=== PATIENT | male | born 1940 | race Caucasian/White ===

== ENCOUNTER 2020-05-26 08:40 | Inpatient (IN) ==
--- NOTE | 2020-05-24 17:27 | XRay Report ---
CLINICAL INFORMATION: Pre-Op COMPARISON: 03/07/2012 FINDINGS: Small hiatal hernia is appreciated. Cardiomediastinal silhouette and pulmonary vessels are otherwise normal. Lungs are clear. No effusions. Mild old compression fractures mid thoracic spine stable IMPRESSION: No acute disease. Small hiatal hernia - new from prior exam Interpreted and Authenticated by: Remigio Machado 05/24/20
[2020-05-24 18:56] LABS: INR 0.9 (0.9-1.1); Partial Thromboplastin Time 29.7 sec (20.0-37.0); Prothrombin Time 12.8 sec (11.9-14.5)
[2020-05-24 19:40] LABS: Basophils # (Auto) 0.07 K/mcL (0.00-0.20); Eosinophils # (Auto) 0.28 K/mcL (0.00-0.70); Hemoglobin 15.9 g/dL (13.5-16.5); Lymphocytes # (Auto) 1.16 K/mcL (1.50-4.80); Lymphocytes % (Auto) 16.6 % (15.0-49.0); Mean Corpuscular HGB Conc 32.4 g/dL (31.0-36.0); Mean Platelet Volume 11.4 fL (7.4-10.4); Monocytes % (Auto) 5.7 % (1.0-12.0); Neutrophils % (Auto) 72.7 % (38.0-78.0); Platelet Count 178 K/mcL (140-440); RBC 5.27 M/mcL (4.50-5.90)
[2020-05-24 20:27] LABS: ALT/SGPT 18 U/L (<40); AST/SGOT 26 U/L (<40); Albumin 4.8 gm/dL (3.2-5.2); Albumin/Globulin Ratio 2.1 (1.0-2.3); Alkaline Phosphatase 94 U/L (39-117); Bilirubin,Total 0.5 mg/dL (0.1-1.0); Blood Urea Nitrogen 13 mg/dL (8-23); Calcium 9.6 mg/dL (8.6-10.4); Carbon Dioxide 27 mmol/L (22-30); Chloride 99 mmol/L (96-108); Globulin 2.3 gm/dL (2.2-3.7); Glomerular Filtration Rate 72; Glucose 96 mg/dL (70-105)
[2020-05-28] MEDS ORDERED: LEVOFLOXACIN 750 MG/150 ML BAG IV SCH (06:00)
[2020-05-28] MEDS ORDERED: metroNIDAZOLE 500 MG/100 ML BAG IV SCH (06:00)
[2020-05-28] MEDS ORDERED: SCOPOLAMINE 1 PATCH PATCH TOPICAL PRN (07:00)
[2020-05-28] MEDS ORDERED: IPRATROPIUM/ALBUTEROL 3 ML AMPUL.NEB NEB PRN ×2 (07:00→10:22)
[2020-05-28] MEDS ORDERED: SUCCINYLCHOLINE 20 MG/ML ML IV ONE (07:45)
[2020-05-28] MEDS ORDERED: LIDOCAINE HCL/PF 100 MG/5 ML SYRINGE IV ONE (07:45)
[2020-05-28] MEDS ORDERED: ROCURONIUM 10 MG/ML ML IV ONE (07:45)
[2020-05-28] MEDS ORDERED: PROPOFOL 200 MG/20 ML VIAL IV ONE (07:45)
[2020-05-28] MEDS ORDERED: KETAMINE 100 MG/ML ML ONE (07:45)
[2020-05-28] MEDS ORDERED: ePHEDrine 50 MG/ML AMPUL IV ONE (07:45)
[2020-05-28] MEDS ORDERED: PHENYLEPHRINE 10 MG/ML VIAL ONE (07:45)
[2020-05-28] MEDS ORDERED: HYDROmorphone 1 MG/ML SYRINGE ONE (07:45)
[2020-05-28] MEDS ORDERED: GLYCOPYRROLATE 0.2 MG/ML VIAL IV ONE (07:45)
[2020-05-28] MEDS ORDERED: DEXAMETHASONE 10 MG/ML VIAL ONE (07:45)
[2020-05-28] MEDS ORDERED: ROPIVACAINE HCL/PF 20 ML VIAL IJ ONE (07:45)
[2020-05-28] MEDS ORDERED: fentaNYL 100 MCG/2 ML VIAL IV ONE (07:45)
[2020-05-28] MEDS ORDERED: ONDANSETRON 4 MG/2 ML VIAL ONE (07:45)
[2020-05-28] MEDS ORDERED: ONDANSETRON 4 MG/2 ML VIAL IV PRN ×2 (10:05→10:22)
--- NOTE | 2020-05-28 10:05 | Brief Operative Note ---
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
[2020-05-28] MEDS ORDERED: oxyCODONE HCL 5 MG TABLET PO PRN (10:11)
[2020-05-28] MEDS ORDERED: fentaNYL 100 MCG/2 ML VIAL IV PRN (10:22)
[2020-05-28] MEDS ORDERED: METHOCARBAMOL 1,000 MG/10 ML VIAL IV PRN (10:22)
[2020-05-28] MEDS ORDERED: BENZOCAINE/MENTHOL 1 LOZENGE PO PRN (10:22)
[2020-05-28] MEDS ORDERED: NALOXONE HCL 0.4 MG/ML VIAL IV PRN (10:22)
[2020-05-28] MEDS ORDERED: LACTATED RINGERS 250 ML IV PRN (10:22)
[2020-05-28] MEDS ORDERED: ACETAMINOPHEN 1,000 MG/100 ML BAG IV ONE (10:22)
[2020-05-28] MEDS ORDERED: LACTATED RINGERS 1,000 ML IV SCH (10:30)
[2020-05-28] MEDS: 0.9 % SODIUM CHLORIDE 1,000 ML IV SCH ×2 (11:28→19:36)
[2020-05-28] MEDS: METOCLOPRAMIDE 10 MG/2 ML VIAL IV SCH ×3 (12:25→23:21)
[2020-05-28] MEDS: 0.9 % SODIUM CHLORIDE 10 ML SYRINGE IV SCH ×2 (14:52→20:59)
[2020-05-28] MEDS ORDERED: diphenhydrAMINE 25 MG CAPSULE PO PRN (21:00)
[2020-05-28] MEDS: ACETAMINOPHEN 1,000 MG/100 ML BAG IV PRN (22:06)
[2020-05-29] MEDS: 0.9 % SODIUM CHLORIDE 1,000 ML IV SCH ×5 (04:02→21:13)
[2020-05-29] MEDS: ACETAMINOPHEN 1,000 MG/100 ML BAG IV PRN ×3 (04:52→22:07)
[2020-05-29] MEDS: METOCLOPRAMIDE 10 MG/2 ML VIAL IV SCH ×4 (05:50→23:34)
[2020-05-29] MEDS: 0.9 % SODIUM CHLORIDE 10 ML SYRINGE IV SCH ×3 (05:50→20:36)
[2020-05-29 06:17] LABS: Basophils # (Auto) 0.01 K/mcL (0.00-0.20); Basophils % (Auto) 0.1 % (0.0-2.0); Eosinophils # (Auto) 0 K/mcL (0.00-0.70); Eosinophils % (Auto) 0 % (0.0-7.0); Hematocrit 42.2 % (41.0-55.0); Hemoglobin 13.4 g/dL (13.5-16.5); Lymphocytes # (Auto) 0.47 K/mcL (1.50-4.80); Lymphocytes % (Auto) 3.3 % (15.0-49.0); Mean Cell Volume 93.4 fL (80.0-100.0); Mean Corpuscular HGB Conc 31.8 g/dL (31.0-36.0); Mean Platelet Volume 10.7 fL (7.4-10.4); Monocytes # (Auto) 0.85 K/mcL (0.10-0.90); Monocytes % (Auto) 6.1 % (1.0-12.0); Neutrophils % (Auto) 90.5 % (38.0-78.0); Platelet Count 148 K/mcL (140-440); RBC 4.52 M/mcL (4.50-5.90); Red Cell Distribution Width 13.9 % (11.5-14.5)
[2020-05-29 06:43] LABS: ALT/SGPT 14 U/L (<40); AST/SGOT 18 U/L (<40); Albumin 3.4 gm/dL (3.2-5.2); Alkaline Phosphatase 58 U/L (39-117); Bilirubin,Direct 0.2 mg/dL (<0.3); Bilirubin,Total 0.7 mg/dL (0.1-1.0); Blood Urea Nitrogen 12 mg/dL (8-23); Calcium 8.1 mg/dL (8.6-10.4); Carbon Dioxide 24 mmol/L (22-30); Chloride 104 mmol/L (96-108); Globulin 1.7 gm/dL (2.2-3.7); Glomerular Filtration Rate 72; Glucose 132 mg/dL (70-105); Lactate Dehydrogenase 166 U/L (135-225); Phosphorous 2.7 mg/dL (2.5-4.5); Triglycerides 60 mg/dL (<150); Uric Acid 6.5 mg/dL (2.5-8.0)
[2020-05-29] MEDS ORDERED: BENZOCAINE 1 SPRAY BOTTLE TOPICAL PRN (13:34)
--- NOTE | 2020-05-29 13:39 | General Surgery Progress Note ---
SUBJECTIVE Subjective Patient information: Note initiated : 05/29/20 at 1:31 pm Service Date, if different from initiated Date: [] Patient: Luis Manuel Lagos 79 y/o M admitted on 05/28/20 for Right Colectomy. Chief Complaint: [] Principal diagnosis: Cecal cancer Interval history: Patient is doing well. He has mild discomfort in his incision. He does not have any nausea. He complains of sore throat from the nasogastric tube and irritation from his Bai catheter. White blood count 14,000, hemoglobin 13.4, hematocrit 42.2. Constitutional Vitals: Vital Signs Temp Pulse Resp BP Pulse Ox 97.8 F 63 18 122/69 96 05/29/20 11:34 05/29/20 11:34 05/29/20 11:34 05/29/20 11:34 05/29/20 11:34 Period Temp Pulse Resp BP Sys/Torres Pulse Ox Last 24 Hr 97.3 F-98.4 F 63-83 16-18 91-122/50-73 88-96 Intake and Output 05/28/20 05/29/20 05/29/20 21:59 05:59 13:59 Intake Total 1000 1450 1100 Output Total 250 720 300 Balance 750 730 800 Weight 187 lb 8 oz 187 lb 8 oz Patient Weight 05/30/20 05:59 Weight 187 lb 8 oz Intake & Output: Intake & Output 05/28/20 05/29/20 05/29/20 21:59 05:59 13:59 Intake Total 1000 1450 1100 Output Total 250 720 300 Balance 750 730 800 Weight 187 lb 8 oz 187 lb 8 oz Intake: IV 1000 1200 1100 Sodium Chloride 0.9% 1,000 ml @ 1000 1000 1000 125 mls/hr IV .[facility]H [facility] Rx#: [id number] Oral 250 Output: Gastric Drainage 50 270 Right Nare NG/OG 50 270 Urine Catheter Amount 200 450 300 Other: Urine Appearance Clear Clear Uretheral (Bai) Clear Urine Color Bright Yellow Bright Yellow Dark Yellow Uretheral (Bai) Bright Yellow Eye Eye exam: Present EOMI and normal appearance Pupils: Present PERRL ENT ENT exam: Present mucous membranes moist and normal oropharynx Neck Neck exam: Present full ROM and normal inspection Respiratory Respiratory exam: Present normal respiratory exam, CTAB and rhonchi Cardiovascular Cardiovascular exam: Present normal rate and rhythm, RRR, +S1 and +S2 GI/Abdominal GI/Abdominal exam: Present normal bowel sounds, soft and tenderness (Mild incisional tenderness) Extremities Exam Extremities exam: Present full ROM and neurovascular intact Neurological Exam Neurological exam: Present alert, CN II-XII intact and reflexes normal Psychiatric Psychiatric exam: Present normal affect and normal mood Skin Skin exam: Present intact and normal color A/P Assessment and plan (1) Adenocarcinoma of cecum: Status: Acute (2) GERD without esophagitis: Status: Chronic Narrative A/P Narrative: Patient is doing well DC Bai catheter Cetacaine spray Time Spent With Patient Time: Total time spent is greater than 50% in coordination of care (as documented) at patient's floor/unit and/or counseling patient:
[2020-05-30] MEDS: ACETAMINOPHEN 1,000 MG/100 ML BAG IV PRN ×3 (04:43→23:40)
[2020-05-30] MEDS: 0.9 % SODIUM CHLORIDE 1,000 ML IV SCH ×5 (04:44→17:19)
[2020-05-30] MEDS: 0.9 % SODIUM CHLORIDE 10 ML SYRINGE IV SCH ×3 (04:44→20:35)
[2020-05-30] MEDS: METOCLOPRAMIDE 10 MG/2 ML VIAL IV SCH ×4 (05:35→23:40)
[2020-05-30 06:16] LABS: Basophils # (Auto) 0.03 K/mcL (0.00-0.20); Basophils % (Auto) 0.3 % (0.0-2.0); Eosinophils # (Auto) 0.09 K/mcL (0.00-0.70); Hematocrit 39.2 % (41.0-55.0); Hemoglobin 12.9 g/dL (13.5-16.5); Lymphocytes # (Auto) 0.77 K/mcL (1.50-4.80); Lymphocytes % (Auto) 8.2 % (15.0-49.0); Mean Cell Volume 91.4 fL (80.0-100.0); Mean Corpuscular HGB Conc 32.9 g/dL (31.0-36.0); Monocytes # (Auto) 0.68 K/mcL (0.10-0.90); Monocytes % (Auto) 7.2 % (1.0-12.0); Neutrophils % (Auto) 83.3 % (38.0-78.0); Platelet Count 138 K/mcL (140-440); RBC 4.29 M/mcL (4.50-5.90); Red Cell Distribution Width 14.1 % (11.5-14.5); WBC 9.4 K/mcL (4.5-11.0)
[2020-05-30 06:40] LABS: ALT/SGPT 13 U/L (<40); AST/SGOT 20 U/L (<40); Albumin 3.1 gm/dL (3.2-5.2); Albumin/Globulin Ratio 1.5 (1.0-2.3); Alkaline Phosphatase 58 U/L (39-117); Bilirubin,Direct < 0.2 mg/dL (0-0.3); Bilirubin,Total 0.7 mg/dL (0.1-1.0); Blood Urea Nitrogen 11 mg/dL (8-23); Calcium 8.1 mg/dL (8.6-10.4); Carbon Dioxide 26 mmol/L (22-30); Chloride 104 mmol/L (96-108); Glomerular Filtration Rate 81; Glucose 97 mg/dL (70-105); Lactate Dehydrogenase 170 U/L (135-225); Phosphorous 1.8 mg/dL (2.5-4.5); Triglycerides 111 mg/dL (<150); Uric Acid 6.2 mg/dL (2.5-8.0)
--- NOTE | 2020-05-30 10:01 | General Surgery Progress Note ---
SUBJECTIVE Subjective Patient information: Note initiated : 05/30/20 at 9:59 am Service Date, if different from initiated Date: [] Patient: Luis Manuel Lagos 79 y/o M admitted on 05/28/20 for Right Colectomy. Chief Complaint: [] Principal diagnosis: Cecal cancer Interval history: Postop day #2 status post right hemicolectomy. Patient has started flatus overnight, reports he feels well. White count has returned to normal. H&H is stable Constitutional Vitals: Vital Signs Temp Pulse Resp BP Pulse Ox 98.1 F 62 16 129/67 92 05/30/20 06:41 05/30/20 06:41 05/30/20 06:41 05/30/20 06:41 05/30/20 06:41 Period Temp Pulse Resp BP Sys/Torres Pulse Ox Last 24 Hr 97.8 F-99.9 F 62-79 14-18 112-129/59-70 90-96 Intake and Output 05/29/20 05/30/20 05/30/20 21:59 05:59 13:59 Intake Total 1250 1400 Output Total 800 600 100 Balance 450 800 -100 Weight 185 lb 8 oz Intake & Output: Intake & Output 05/29/20 05/30/20 05/30/20 21:59 05:59 13:59 Intake Total 1250 1400 Output Total 800 600 100 Balance 450 800 -100 Weight 185 lb 8 oz Intake: IV 1000 1200 Sodium Chloride 0.9% 1,000 ml @ 1000 1000 125 mls/hr IV .Q8H [facility] Rx#: [id number] Oral 250 200 Output: Gastric Drainage 50 100 Right Nare NG/OG 50 100 Urine Catheter Amount 100 Void Amount 650 500 100 Other: Urine Appearance Clear Clear Clear Urine Color Dark Yellow Bright Yellow Dark Yellow Urine Odor Normal General appearance: cooperative and no acute distress GI/Abdominal GI/Abdominal exam: Present soft and tenderness (Appropriately tender to palpation); Absent distended Additional comments: Incision is dressed, no discharge, no erythema. A/P Narrative A/P Narrative: Postoperative day #2 status post right hemicolectomy. Patient has passed flatus. DC NG tube, start with sips of clears. Encourage ambulation. Time Spent With Patient Time: Total time spent is greater than 50% in coordination of care (as documented) at patient's floor/unit and/or counseling patient:
[2020-05-30] MEDS ORDERED: SODIUM PHOSPHATE 30 MMOL in DEXTROSE 5% IN WATER 500 ML IV ONE (13:57)
[2020-05-31] MEDS: 0.9 % SODIUM CHLORIDE 1,000 ML IV SCH ×6 (02:35→22:10)
[2020-05-31] MEDS: METOCLOPRAMIDE 10 MG/2 ML VIAL IV SCH ×3 (05:23→18:19)
[2020-05-31] MEDS: 0.9 % SODIUM CHLORIDE 10 ML SYRINGE IV SCH ×3 (05:23→21:26)
[2020-05-31] MEDS: ACETAMINOPHEN 1,000 MG/100 ML BAG IV PRN (05:40)
[2020-05-31 06:44] LABS: ALT/SGPT 11 U/L (<40); AST/SGOT 17 U/L (<40); Albumin/Globulin Ratio 1.4 (1.0-2.3); Alkaline Phosphatase 59 U/L (39-117); Bilirubin,Direct 0.2 mg/dL (<0.3); Bilirubin,Total 0.6 mg/dL (0.1-1.0); Blood Urea Nitrogen 9 mg/dL (8-23); Calcium 8.4 mg/dL (8.6-10.4); Carbon Dioxide 26 mmol/L (22-30); Chloride 102 mmol/L (96-108); Globulin 2.1 gm/dL (2.2-3.7); Glomerular Filtration Rate 81; Glucose 94 mg/dL (70-105); Lactate Dehydrogenase 152 U/L (135-225); Phosphorous 2.4 mg/dL (2.5-4.5); Triglycerides 113 mg/dL (<150); Uric Acid 5.5 mg/dL (2.5-8.0)
--- NOTE | 2020-05-31 11:52 | General Surgery Progress Note ---
SUBJECTIVE Subjective Patient information: Note initiated : 05/31/20 at 11:48 am Service Date, if different from initiated Date: [] Patient: Luis Manuel Lagos 79 y/o M admitted on 05/28/20 for Right Colectomy. Chief Complaint: [] Principal diagnosis: Cecal cancer Interval history: Patient continues to do well. He has had flatus with multiple small bowel movements. He is tolerating full liquid diet without difficulty. He does have some mild bloating. His incision is healing uneventfully. Electrolytes are normal. Constitutional Vitals: Vital Signs Temp Pulse Resp BP Pulse Ox 97.7 F 57 L 20 115/67 91 05/31/20 07:59 05/31/20 07:59 05/31/20 07:59 05/31/20 07:59 05/31/20 07:59 Period Temp Pulse Resp BP Sys/Torres Pulse Ox Last 24 Hr 97.7 F-99.3 F 57-71 16-20 101-124/58-69 91-92 Intake and Output 05/30/20 05/31/20 05/31/20 21:59 05:59 13:59 Intake Total 610 1500 480 Output Total 300 800 250 Balance 310 700 230 Weight 184 lb 8 oz Intake & Output: Intake & Output 05/30/20 05/31/20 05/31/20 21:59 05:59 13:59 Intake Total 610 1500 480 Output Total 300 800 250 Balance 310 700 230 Weight 184 lb 8 oz Intake: IV 610 1100 100 Sodium Chloride 0.9% 1,000 ml @ 1000 125 mls/hr IV .Q8H [facility] Rx#: [id number] Sodium Phosphate 30 Mmol In 510 Dextrose 5% in Water 500 ml @ 85 mls/hr IV ONCE ONE Rx#: [id number] Oral 400 380 Output: Void Amount 300 800 250 Other: Meal Breakfast Percent of Meal Consumed 50% Feeding Ability Assist with Tray Set Up Urine Appearance Clear Clear Clear Urine Color Bright Yellow Straw Dark Yellow Urine Odor Normal Normal Stool Size Small Small Stool Color Brown Brown Stool Consistency Liquid Liquid # Bowel Movements 1 1 Eye Eye exam: Present EOMI and normal appearance Pupils: Present PERRL ENT ENT exam: Present mucous membranes moist and normal oropharynx Neck Neck exam: Present full ROM and normal inspection Respiratory Respiratory exam: Present normal respiratory exam, CTAB and rhonchi Cardiovascular Cardiovascular exam: Present normal rate and rhythm, RRR, +S1 and +S2 GI/Abdominal GI/Abdominal exam: Present soft and tenderness (Appropriately tender to palpation); Absent distended Additional comments: Incision is dressed, no discharge, no erythema. Extremities Exam Extremities exam: Present full ROM and neurovascular intact Neurological Exam Neurological exam: Present alert, CN II-XII intact and reflexes normal Psychiatric Psychiatric exam: Present normal affect and normal mood Skin Skin exam: Present intact and normal color A/P Assessment and plan (1) Adenocarcinoma of cecum: Status: Acute (2) GERD without esophagitis: Status: Chronic Narrative A/P Narrative: Advance diet to soft diet in a.m. Saline lock IV Probable discharge home tomorrow Time Spent With Patient Time: Total time spent is greater than 50% in coordination of care (as documented) at patient's floor/unit and/or counseling patient:
[2020-06-01] MEDS: METOCLOPRAMIDE 10 MG/2 ML VIAL IV SCH ×3 (00:10→12:52)
[2020-06-01] MEDS: 0.9 % SODIUM CHLORIDE 10 ML SYRINGE IV SCH ×2 (05:32→12:53)
--- NOTE | 2020-06-01 13:23 | Discharge Summary ---
Discharge Provider Provider Patient information: Note initiated : 06/01/20 at 1:22 pm Service Date, if different from initiated Date: [] Patient: Luis Manuel Lagos 79 y/o M admitted on 05/28/20 for Right Colectomy. Chief Complaint: [] Date of admission: 05/28/20 05:56 Discharge date: 06/01/20 Primary care physician: Ankit Harris Admitting clinician: Geraldine Hodge Attending physician on discharge: Geraldine Hodge Discharging clinician: Geraldine Hodge COURSE Hospital Course Hospital course: 79-year-old male who underwent right colectomy on 28 May 2020 for neoplasm of the cecum. Patient has had an uneventful course. He is passed flatus and had bowel movements. He is tolerating a soft diet without difficulty. His pain is controlled. He denies nausea. Patient is stable to discharge Discharge diagnosis: . Adenocarcinoma of the cecum Reason for admission: Postoperative right colectomy Procedures: Right colectomy Pertinent studies/significant findings: None Complications: None Time Spent with Patient Time attestation: Total time spent providing and/or coordinating discharge services: Physical Examination Vital Signs Vital signs: Temp Pulse Resp BP Pulse Ox 98.0 F 61 18 141/85 95 06/01/20 11:52 06/01/20 11:52 06/01/20 11:52 06/01/20 11:52 06/01/20 11:52 General physical appearance General physical exam: well developed, well nourished, no distress and no pain Eyes Eye exam: PERRL and normal ocular movement ENT ENT exam: normal pinna, normal nares and normal mucosa Head Head exam IM: Present atraumatic, normal inspection and normocephalic Neck Neck exam: no masses, no bruits, trachea midline, no lymphadenopathy and no venous distension Cardiovascular Cardiovascular exam IM: Present normal rate and rhythm, RRR, +S1 and +S2; Absent JVD, systolic murmur and tachycardia Respiratory Respiratory exam: normal expansion, normal respiratory effort and clear to auscultation Abdomen Abdomen: Present soft and tender (Minimal incisional tenderness; incision looks good) Integumentary Integumentary: Present no rash, no growths and no abnormal pigmentation Neurologic Neurologic: Present normal coordination and normal sensation Musculoskeletal Musculoskeletal: Present normal gait and normal posture Psychiatric Psychiatric: Present oriented to time, oriented to person, oriented to place, speech is normal and memory intact Discharge Plan Patient/Caregiver Discharge Instructions Activity: increase activity as tolerated Diet: Low Fiber Prescriptions: No Action allopurinol 100 mg tablet 100 mg PO QDAY PRN (Reason: Gout) RF: 0 celecoxib 200 mg capsule 200 mg PO QDAY RF: 0 levothyroxine 100 mcg tablet 100 mcg PO QDAY RF: 0 multivitamin Tablet 1 tab PO QDAY RF: 0 omeprazole 20 mg capsule,delayed release(DR/EC) 20 mg PO QDAY RF: 0 Vitamin D3 100 mcg (4,000 unit) Capsule 100 mcg PO QDAY RF: 0 Follow Up Plan Follow up with: Geraldine Hodge MD [Physician] - Patient Disposition: Home, Self-Care Prognosis: Good Rehab Potential: Good I certify that the patient requires SNF services: No Overall status at discharge: patient is progressing back to baseline Discharge Orders: Discharge Order (Routine); Ordered 06/01/20 Ordered By: Geraldine Hodge Pending Pending Pending: Resuscitation Status Full Code Diet GI Soft/Transitional Start SunJun 01 0800 Benzocaine (Benzocaine 1 Arvonia Bottle) 1 spray TOPICAL ONCE PRN PRN Reason: Mouth Irritation Last Admin: 05/29/20 13:48 Dose: 1 spray Documented by: ERICH Acetaminophen (Ofirmev) 1,000 mg in 100 mls @ 200 mls/hr IV Q6HP PRN; Protocol PRN Reason: Per Pain Protocol/Fever > 101 Last Infusion: 05/31/20 06:18 Dose: 0 mls/hr Documented by: Admin: 05/31/20 05:40 Dose: 200 mls/hr Documented by: Infusion: 05/31/20 00:10 Dose: 0 mls/hr Documented by: Admin: 05/30/20 23:40 Dose: 200 mls/hr Documented by: Infusion: 05/30/20 16:59 Dose: 0 mls/hr Documented by: Admin: 05/30/20 15:56 Dose: 200 mls/hr Documented by: Infusion: 05/30/20 05:13 Dose: 0 mls/hr Documented by: Admin: 05/30/20 04:43 Dose: 200 mls/hr Documented by: Infusion: 05/29/20 22:37 Dose: 0 mls/hr Documented by: Admin: 05/29/20 22:07 Dose: 200 mls/hr Documented by: Infusion: 05/29/20 12:58 Dose: 0 mls/hr Documented by: Admin: 05/29/20 11:47 Dose: 200 mls/hr Documented by: Infusion: 05/29/20 05:22 Dose: 0 mls/hr Documented by: Admin: 05/29/20 04:52 Dose: 200 mls/hr Documented by: Infusion: 05/28/20 22:36 Dose: 0 mls/hr Documented by: Admin: 05/28/20 22:06 Dose: 200 mls/hr Documented by: HENNY Metoclopramide HCl (Metoclopramide 10 Mg/2 Ml Vial) 10 mg IV Q6 Replaced by [facility] Admin: 06/01/20 12:52 Dose: 10 mg Documented by: Admin: 06/01/20 05:32 Dose: 10 mg Documented by: Admin: 06/01/20 00:10 Dose: 10 mg Documented by: Admin: 05/31/20 18:19 Dose: 10 mg Documented by: Admin: 05/31/20 12:46 Dose: 10 mg Documented by: Admin: 05/31/20 05:23 Dose: 10 mg Documented by: Admin: 05/30/20 23:40 Dose: 10 mg Documented by: Admin: 05/30/20 17:02 Dose: 10 mg Documented by: Admin: 05/30/20 11:26 Dose: 10 mg Documented by: Admin: 05/30/20 05:35 Dose: 10 mg Documented by: Admin: 05/29/20 23:34 Dose: 10 mg Documented by: Admin: 05/29/20 17:24 Dose: 10 mg Documented by: Admin: 05/29/20 11:47 Dose: 10 mg Documented by: Admin: 05/29/20 05:50 Dose: 10 mg Documented by: Admin: 05/28/20 23:21 Dose: 10 mg Documented by: Admin: 05/28/20 17:46 Dose: 10 mg Documented by: Admin: 05/28/20 12:25 Dose: 10 mg Documented by: FAMILIA Sodium Chloride (0.9 % Sodium Chloride 10 Ml Syringe) 10 ml IV Q8 ZANE Last Admin: 06/01/20 12:53 Dose: 10 ml Documented by: Admin: 06/01/20 05:32 Dose: 10 ml Documented by: Admin: 05/31/20 21:26 Dose: Not Given Documented by: Admin: 05/31/20 14:15 Dose: Not Given Documented by: Admin: 05/31/20 05:23 Dose: Not Given Documented by: Admin: 05/30/20 20:35 Dose: Not Given Documented by: Admin: 05/30/20 14:27 Dose: Not Given Documented by: Admin: 05/30/20 04:44 Dose: Not Given Documented by: Admin: 05/29/20 20:36 Dose: Not Given Documented by: Admin: 05/29/20 12:58 Dose: Not Given Documented by: Admin: 05/29/20 05:50 Dose: Not Given Documented by: Admin: 05/28/20 20:59 Dose: Not Given Documented by: Admin: 05/28/20 14:52 Dose: Not Given Documented by: FAMILIA Shift Summary 06/01/20 04:06 Shift Summary by Jordyn Christianson Pt A/O x4. Voiding via urinal QS. Midline incision covered in gauze and Tegaderm CDI. States pain is manageable at 3/10. IV is Up at oscar in room and SBA in hallway. Ambulated to cafe and back last evening. Diet to be advanced to GI soft for breakfast. Hopes to discharge today. Will update with verbal report. Initialized on 06/01/20 04:06 - END OF NOTE
--- NOTE | 2020-06-01 17:10 | Surgical Pathology Report ---
Histology Microscopic Diagnosis Specimen A- COLON, TERMINAL ILEUM, RIGHT HEMICOLECTOMY: --- INVASIVE MODERATELY DIFFERENTIATED COLORECTAL ADENOCARCINOMA. -- SIZE: 4.5 x 4.0 cm. -- DEPTH OF INVASION: TUMOR INVADES INTO AND FOCALLY PENETRATES MUSCULARIS PROPRIA, WITH MAXIMUM THICKNESS OF 0.6 cm. -- LYMPH-VASCULAR INVASION: NOT IDENTIFIED. -- SURGICAL MARGINS: FREE OF MALIGNANCY, CLOSEST IS DISTAL MUCOSAL AND RADIAL MESENTERIC MARGIN AT 4.0 cm. -- LYMPH NODES: ALL SEVENTEEN PARACOLONIC/PARAILEAL LYMPH NODES NEGATIVE FOR MALIGNANCY. -- PATHOLOGIC STAGE: pT3 pN0. (ACP:sln) SUMMARY CANCER DATA Procedure: Hemicolectomy Tumor Site: Cecum Tumor Size: 4.5 x 4.0 x 0.6 cm Macroscopic Tumor Perforation: Not identified Histologic Type: Adenocarcinoma Histologic Grade: Low (moderately differentiated) Microscopic Tumor Extension: Tumor invades into and focally penetrates muscularis propria Lymph-Vascular Invasion: Not identified Perineural Invasion: Not identified Tumor Deposits (discontinuous extramural extension): Not identified Treatment Effect: No known presurgical therapy Margins: Proximal Margin: 5.5 cm Distal Margin: 4.0 cm Circumferential (Radial) or Mesenteric Margin: 4.0 cm Distance of invasive carcinoma from closest margin: 4.0 cm Lymph nodes: Number of Lymph Nodes examined: 17 Number of Lymph Nodes involved: 0 Pathologic Stage: pT3 pN0 Procedural Impression Adenocarcinoma of cecum. Gross Description The specimen is received in formalin as colon resection adenocarcinoma of cecum, right colon and consists of a small right colectomy specimen that measures up to 9 cm in length with a maximum diameter of 4.5 cm. Both margins are stapled. Attached adipose tissue ranges in thickness from 2.5 to 5.5 cm. The appendix is surgically absent. Also present with the container are two segments of valerio mucosa that measure 1.5 x 1 x 0.5 cm and 0.6 x 0.6 x 0.5 cm. The specimen is opened revealing a small amount of fecal material. Within the cecum and involving the ileocecal valve, there is an elevated hyperemic valerio mass that measures 4 x 4.5 cm. The lesion is present 5.5 cm from the ileocecal valve and 4 cm from the colonic margin of resection. The resected mesenteric margin in this area measures 4 cm. Sectioning the tumor reveals a firm, valerio-white cut surface. The lesion grossly appears to invade into, but not through, the muscularis propria, and has a maximum thickness of 0.6 cm, although a focal region of extension through the muscle cannot be grossly excluded. The uninvolved ileal and colonic mucosa are intact and valerio in color. No mass lesions or polyps are seen. Multiple lymph nodes are identified within the attached fat, ranging in size from 0.2 to 1.3 cm. Sections submitted according to the following slide garcia: A1 - proximal, distal and resected mesenteric margin; A2-A6 - customer service representative teller cross sections of mass including deepest areas of gross invasion; A7 - customer service representative teller ileal and colonic mucosa; A8 - six candidate lymph nodes, one inked and bisected; A9 - five possible lymph nodes, one inked and bisected; A10 - three candidate lymph nodes from less than 0.1 to 0.5 cm; A11-A17 - random sections vascular tissue. and fat (ACP:adj) Electronically Signed Aman Patel MD, FCAP Electronically Signed 06/01/2020 17:02
--- NOTE | 2020-06-04 14:15 | Operative Note ---
DATE OF OPERATION: 05/28/2020 PREOPERATIVE DIAGNOSIS: Cecal adenocarcinoma. POSTOPERATIVE DIAGNOSIS: Cecal adenocarcinoma. PROCEDURE: Right colectomy. SURGEON: Geraldine Hodge M.D. FINDINGS: Cavitated neoplasm of the cecum at the level of the ileocecal valve. DESCRIPTION OF PROCEDURE: Under general anesthesia, the patient's abdomen was prepped and draped in a sterile field. Lower midline incision was made. Exploration of the abdomen revealed a firm, nodular, cavitated neoplasm of the cecum at the level of the ileocecal valve. The incision was extended above the umbilicus for a few centimeters. The right colon was mobilized up to the hepatic flexure. The terminal ileum was mobilized. Terminal ileum was divided using Contour stapler. The ascending colon was divided at the mid level using Contour stapler. The mesocolon was transected using the [employer] cautery device. The specimen was passed off. There did not appear to be any significant nodularity in the mesentery. The ileum was then anastomosed to the distal ascending colon using a KONRAD 55 stapler and a TA 60 stapler. Staple line was oversewn using running locking 3-0 Prolene. The mesenteric defect was closed with 2-0 Monocryl. Irrigation was carried out. The patient tolerated the procedure well. Nasogastric tube was positioned in the stomach. Manual evaluation of the upper abdomen did not reveal any periaortic adenopathy and did not reveal any nodularity to the liver or upper structures. Sponge, needle, instrument, and blade counts were verified as correct. A new setup was placed. Abdomen was irrigated once more and the peritoneum and fascia were closed with running #1 Prolene. Subcutaneous tissue was closed with 2-0 Monocryl. Skin was closed with donn. The patient tolerated the procedure well. He was awakened, transferred to a bed, and taken to the postanesthetic care unit in stable, satisfactory condition. LCS:tracee Job ID: [id number] Doc ID: [id number] Geraldine Hodge M.D.
== END 2020-06-01 14:40 | disposition home or self-care (01) | DRG 331 ==
LOC: MEDSUR 05-28 05:56
PROVIDERS: ADMIT Family Medicine Adult Medicine; ATTEND Family Medicine Adult Medicine